=== PATIENT | male | born 1960 | race Caucasian/White ===

== ENCOUNTER 2017-02-06 11:07 | Observation (INO) | payer BC, OTHER ==
[~2017-02-06] VITALS: Ht 190.5 cm; Wt 89.6 kg
--- NOTE | ~2017-02-06 | ECHO ---
Transthoracic Echocardiography Report (TTE) Demographics Patient Name ENZO MARKS Date of Study 02/07/2017 D Patient Number [id number] Visit Number [id number] Date of 1960 Room Number G6312 Gender Male Number Age 56 year(s) Referring Lissett Avendano Vending Machine Coin Collector Faby Morgan [facility] Physician Physician Interpreting Lelia Jasso Hematology Nurse Educator Physician MD Supervising Ordering MD/MLP Physician Nurse Stress Instrument Setter Conclusions Contractility Score Summary Normal Left Ventricular contractility was noted. Summary Normal LV/RV size and systolic function .The estimated left ventricular ejection fraction is 55-60%. Diastolic assessment reveals normal relaxation. Mild concentric left ventricular hypertrophy. Mild tricuspid regurgitation by color Doppler. Procedure Type of Study TTE procedure:2D Echocardiogram. Procedure Date Date: 02/07/2017 Start: 09:30 AM Study Location: Inpatient Portable Technical Quality: Adequate visualization Indications:Syncope. Appropriate Use Criteria: 9 Patient Status: Routine HR: 53 bpm BP: 111/56 mmHg M-Mode/2D Measurements LV Diastolic Dimension: 5.14 cm LV Systolic Dimension: 3.57 cm LV Septum Diastolic: 1.24 cm LV PW Diastolic: 1.13 cm AO Root Dimension: 2.7 cm Cardiac Output: 3.6 l/min AV Cusp Separation: 2.3 cm RV Diastolic Dimension: 3.06 cm EF Estimated: 55 % LVOT: 2.1 cm LVOT VTI: 19.6 cm RV Base: 4.05 cm LV Stroke volume: 67.85 ml RV Length: 8.31 cm TAPSE: 3.02 cm TDI-S': 12.8 cm/s Doppler Measurements AV Peak Velocity: 1.16 m/s MV Peak E-Wave: 0.8 m/s AV Peak Gradient: 5.38 mmHg MV Peak A-Wave: 0.5 m/s AV Mean Gradient: 3 mmHg MV E/A Ratio: 1.58 LVOT Peak Velocity: 1.02 m/s MV P1/2t: 64 msec TR Gradient:10.11 mmHg PV Peak Velocity: 0.71 m/s Estimated RAP:10 mmHg PV Peak Gradient: 2 mmHg Estimated RVSP: 20 mmHg Estimated PASP: 20.11 mmHg E' Septal Velocity: 0.1 m/s A' Septal Velocity: 0.06 m/s E' Lateral Velocity: 0.12 m/s A' Lateral Velocity: 0.17 m/s Findings Left Ventricle Diastolic assessment reveals normal relaxation. Mild concentric left ventricular hypertrophy. Right Ventricle Normal right ventricle structure and function. Left Atrium Normal left atrial size. Right Atrium Normal right atrial size. IVC measures 1.74 cm with inspiratory collapse. Mitral Valve Normal mitral valve structure and function. Aortic Valve Mild AV sclerosis. Tricuspid Valve Mild tricuspid regurgitation by color Doppler. Pulmonic Valve PV is not well visualized. Pericardial Effusion No evidence of pericardial effusion. Pleural Effusion No evidence of pleural effusion. Contractility Score LV regional wall motion:(0-Non visualized 1-Normal 2-Hypokinesis 3-Akinesis 4-Dyskinesis 5-Aneurysm) Signature dtt: MARIA VICTORIA RIBEIRO dtd: 02/07/17 0930 Physician Self Edit
--- NOTE | ~2017-02-06 | ER ---
PATIENT'S NAME: ENZO MARKS [facility] AGE: 56 Y [address] ROOM: [place] [address] LOCATION: GPCU ADMIT DATE: 02/06/2017 ER/Outpatient Report DISCHARGE DATE: FAMILY PHYSICIAN: PHYSICIAN, NO ATTENDING PHYSICIAN: Romana MITCHELL Time of Patient's Arrival: 1107 hours. Time of Patient's Evaluation: 1115 hours. CHIEF COMPLAINT: Syncopal episode. HISTORY OF PRESENT ILLNESS: This is a 56-year-old male who presents to the ER, who states he had 4 syncopal episodes this morning. The patient states that he has been dealing with abdominal pain and this is a chronic thing for him. He states it comes and goes, but it has started back up again and it has been bothering him the last few days and he states it is located in his right lower quadrant. The patient states he has had a colonoscopy 2 years ago with no acute findings and he has not followed up with anybody since then. The patient denies any fever or chills. Denies any recent upper respiratory infections. He states he was taking a shower this morning when he started feeling lightheaded and dizzy. He sat down on the side of the tub and ultimately states that he passed out. He states he was on the floor. He states every time he would try to get up he would pass out again. He states this occurred 4 times this morning. He then was able to feel good enough to get up and get bagels to eat and then decided to come in to get evaluated. The patient states he did not hit his head. He denies any chest pain. No heart palpitations. He denies any other problems at this time. ALLERGIES: SULFA. MEDICATIONS: 1. Probiotic. 2. Nasal spray. 3. Some Benadryl. 4. Vitamins. PAST MEDICAL HISTORY: Off and on again abdominal pain. PAST SURGICAL HISTORY: He has had a hernia repair and surgery to his leg and right hand. PATIENT'S NAME: ENZO MARKS [facility] AGE: 56 Y [address] ROOM: [place] [address] LOCATION: GPCU ADMIT DATE: 02/06/2017 ER/Outpatient Report DISCHARGE DATE: FAMILY PHYSICIAN: PHYSICIAN, NO ATTENDING PHYSICIAN: Romana MITCHELL SOCIAL HISTORY: He drinks once every couple of weeks. Denies smoking use. REVIEW OF SYSTEMS: All systems reviewed and were negative with the exception of those discussed in the HPI. PHYSICAL EXAMINATION: VITAL SIGNS: Height 6 feet 3 inches stated, weight 90.9 kg taken, blood pressure is 125/63, pulse 74, respirations 18, temperature 97.1 degrees tympanically, and saturations 96% on room air. Yaz Coma Score is 15. GENERAL: Alert, calm, well-developed male, in no obvious distress. HEENT: Head: Normocephalic. He does display moist mucous membranes. Eyes: Pupils are equal and reactive to light. NECK: Supple. No lymphadenopathy. LUNGS: Clear to auscultation bilaterally. HEART: Regular rate and rhythm. ABDOMEN: Soft. He does have some tenderness in his right lower quadrant with palpation. He does slightly guard. He has no rebound tenderness. Good bowel sounds throughout. EXTREMITIES: No clubbing or cyanosis. He has full range of motion of all limbs. SKIN: Warm, dry, and intact. NEURO: Cranial nerves 2 through 12 grossly intact. Gait was not observed. LABORATORY DATA: CBC: White count 11.3, hemoglobin 14.2, platelets 184, and ANC is 10.6. CMS: Glucose is 116, otherwise unremarkable. Magnesium is 2.1. CPK is 115, CK-MB is 0.7, and troponin I is less than 0.040. Chest x-ray was negative for any infiltrate. EKG shows sinus rhythm. CT of the head was negative and reported by Radiology. CT scan of the abdomen and pelvis with contrast shows splenomegaly. He also has perigastric varices and prominence of the portal venous system. These findings are suggestive of portal hypertension. No particular evidence for a hepatic abnormality. ASSESSMENT AND PLAN: 1. Syncopal episodes. 2. Splenomegaly. 3. Perigastric varices and prominence of the portal venous system. ASSESSMENT AND PLAN: The patient did rest comfortably here the entire stay. He did not have any further episodes while he was here. The patient states he does not have a primary care physician; therefore, I called the Hospitalist Service, and they will be coming to evaluate and admit the patient for further observation. The PAT[facility] AGE: 56 Y [address] ROOM: [address] [place], [place] [address] LOCATION: [facility] ADMIT DATE: 02/06/2017 ER/Outpatient Report DISCHARGE DATE: FAMILY PHYSICIAN: PHYSICIAN, NO ATTENDING PHYSICIAN: Romana MITCHELL patient understands and agree with care. GERMAINE ONEILL PA-C FOR MD SEAN BAH/david /[id number] d: t: 02/10/17 1600, OUTPATIENT REPORT
--- NOTE | ~2017-02-06 | DS ---
PATIENT'S NAME: ENZO MARKS [facility] AGE: 56 Y [address] ROOM: [address] [place], [place] [address] LOCATION: GPCU ADMIT DATE: 02/06/2017 Discharge Summary DISCHARGE DATE: 02/07/2017 FAMILY PHYSICIAN: PHYSICIAN, NO ATTENDING PHYSICIAN: Lissett Avendano PRINCIPAL DIAGNOSES: 1. Presyncope. 2. Portal hypertension. 3. Hyperbilirubinemia. HOSPITAL COURSE: A 56-year-old very healthy gentleman with very active lifestyle was admitted to the hospital with presyncope which happened yesterday when he tried to get up from a sitting position. It happened multiple times. He also had vague abdominal pain, which was located in the hypogastrium. But he did have a lower body workout the same day. Initially, CAT scan was done of the head which did not reveal any acute intracranial abnormality. EKG was done, which did not show any acute ST-T wave changes or any rhythm abnormality. Echocardiography was done which was essentially unremarkable. CT scan of the abdomen was done to look for any cause for abdominal pain. It showed evidence for portal hypertension including splenomegaly of 15 cm as well as perigastric varices. Ultrasonography was done to look for any portal venous thrombosis, which was ruled out by radiologist. I did speak to Dr. Mike, radiologist, in person. All the lab work during the course of the hospitalization was pretty much unremarkable, except bilirubin was elevated at 2.0 and on the next day was 1.8. No stigmata of cirrhosis were found. Essentially radiologically, the liver looked fine on the CAT scan as well as ultrasonography. We susanne blood for the viral hepatitis panel which is pending at this point. I did explain all these findings to the patient and recommended that he should follow up with the horticultural nursery assistant in 4-5 days for further workup and management of this portal hypertension. On the day of discharge, the patient did not have any more dizziness, lightheadedness, chest pain, shortness of breath, or palpitations. PHYSICAL EXAMINATION: VITAL SIGNS: 116/65, 20, 57, 98.3. GENERAL: No acute distress. Alert and oriented x3. HEENT: Head: Atraumatic, normocephalic. Eyes: Nonicteric. No pallor. Oropharynx: Moist mucous membranes. CARDIOVASCULAR: S1, S2. No murmurs, gallops, or rubs. LUNGS: Clear to auscultation bilaterally. ABDOMEN: Soft, nontender, and nondistended. Bowel sounds present. EXTREMITIES: No clubbing, cyanosis, or edema. PATIENT'S NAME: ENZO MARKS [facility] AGE: 56 Y [address] ROOM: [place] [address] LOCATION: GPCU ADMIT DATE: 02/06/2017 Discharge Summary DISCHARGE DATE: 02/07/2017 FAMILY PHYSICIAN: PHYSICIAN, NO ATTENDING PHYSICIAN: Lissett Avendano LABORATORY DATA: Lab work as previously described was essentially unremarkable, except the bilirubin of 2 and then on the subsequent day 1.8. CAT scan and the ultrasonography as well as echocardiography findings are described above. DIET: Regular diet. ACTIVITY: As tolerated. FOLLOW UP: With Gastroenterology in 4 days. We will send all the records to Dr. Lopez's office. I spent 45 minutes in discharge planning of this patient including talking to the radiologist as well as explaining ultrasonography as well as lab findings of this patient and coordinating care. MD CARLO LAU/david /[id number] d: 02/08/17 0228 t: 02/13/17 1323, DISCHARGE SUMMARY
--- NOTE | ~2017-02-06 | HP ---
PATIENT'S NAME: ENZO DISLA [facility] AGE: 56 Y [address] ROOM: [place] [address] LOCATION: GPCU ADMIT DATE: 02/06/2017 History & Physical DISCHARGE DATE: FAMILY PHYSICIAN: PHYSICIAN, JESUS ATTENDING PHYSICIAN: Romana MITCHELL DATE OF SERVICE: CHIEF COMPLAINT: Presyncope. HISTORY OF PRESENT ILLNESS: The patient is a 56-year-old gentleman with no significant past medical history, who presents here with multiple episodes of presyncope. The patient reports that he woke up this morning and had work out of lower body for 1 hour and had a shower. Soon after he finished the shower, while he was drying himself, he felt lightheaded and sat down. The patient tried to stand up, however, felt dizzy and slid down and fell. He denies any loss of consciousness or head trauma. He reports that he tried to stand up 3 times with worsening of dizziness and was not able to stand up. However, finally, he was able to stand up and came to our emergency department driving a car and walked through the emergency department. He reports that he was also having some lower abdominal pain which he describes as aching. He is not quite sure whether this is secondary to his lower body workout that he did today. He denies fever, chills, nausea, vomiting, diarrhea, abdominal distention, loss of consciousness, or seizure-like activity. No uterine or bladder incontinence or change in vision. The patient also reports that he has chronic back pain. PAST MEDICAL HISTORY: No significant history except for chronic back pain. PAST SURGICAL HISTORY: 1. Hernia. 2. Thyroidectomy. 3. Right foot surgery. FAMILY HISTORY: Mother had colon cancer, and father has Gaucher disease. SOCIAL HISTORY: He sells furnaces and air conditioner. He denies smoking. Reports that he has a distant history of alcohol abuse in his 20s, however, he states he probably drinks 1 or 2 beers in a month. PATIENT'S NAME: ENZO MARKS [facility] AGE: 56 Y [address] ROOM: [place] [address] LOCATION: GPCU ADMIT DATE: 02/06/2017 History & Physical DISCHARGE DATE: FAMILY PHYSICIAN: PHYSICIAN, NO ATTENDING PHYSICIAN: Romana MITCHELL MEDICATIONS: Currently been reconciled. REVIEW OF SYSTEMS: All systems have been reviewed and are negative except for what I mentioned in the HPI. PHYSICAL EXAMINATION: VITAL SIGN: Blood pressure 125/63, heart rate of 69, temperature of 97.0, respiratory rate of 18, and 98% on room air. GENERAL APPEARANCE: The patient is alert and awake, in no acute distress. HEENT: Head; normocephalic and atraumatic. Nose; no nasal discharge. Mouth; moist oral mucosa. Ears; no discharge. CHEST: Clear to auscultation bilaterally. HEART: Regular rate and rhythm. No murmurs, rubs, or gallops. ABDOMEN: Soft, nontender, and nondistended. Bowel sounds present. GENITOURINARY: No signs of hernia. SKIN: Warm to touch. CITY MAIL CARRIER: Alert and oriented x3. MUSCULOSKELETAL: Range of motion intact. No obvious effusion. The patient is also negative orthostatic currently. LABORATORY DATA: Troponin 0.04. Sodium 141, potassium 4.1, blood glucose 116, creatinine 1.2, and CO2 of 25. White blood cell count of 11.3, hemoglobin 14.2, and platelets of 184,000. Bilirubin 2, alkaline phosphatase of 40, ALT of 21, AST is 21, and INR of 1. EKG shows normal sinus rhythm. Normal axis with heart rate at 77 beats per minute. AZ of 194, and QTc of 405. CT done in the ED shows CT brain, normal CT scan of the head. CT abdomen with contrast shows abnormal liver, biliary tree and nondilated, gallbladder normal. The spleen was enlarged to 15 cm. In addition, there was evidence of perigastric varices and dilation of splenic vein and portal venous confluences suggesting for portal hypertension. ASSESSMENT AND PLAN: 1. Presyncope. Etiology most likely orthostatic due to dehydration. The patient reports that he was working out today for 1 hour. The patient here orthostatic has been stable. The patient appears stable. The patient actually drove from home and actually walked to our emergency department. Vital signs stable. Hemoglobin of 14.2. EKG; normal sinus rhythm. The patient reports that he is feeling better now. As further workup, we will acquire echocardiogram. We will have the patient on subscription clerk and also acquire orthostatic q. shift. 2. Possible portal hypertension. The patient has a history of significant PATIENT'S NAME: ENZO MARKS [facility] AGE: 56 Y [address] ROOM: [address] [place], [place] [address] LOCATION: [facility] ADMIT DATE: 02/06/2017 History & Physical DISCHARGE DATE: FAMILY PHYSICIAN: PHYSICIAN, NO ATTENDING PHYSICIAN: Romana MITCHELL alcohol use in his 20s, however, for the past 20 years or so has been only drinking 1 or 2 mm in a month. INR is normal. Platelets are 184,000. AST and ALT are within normal limits. Bilirubin is mildly elevated to 2. CT shows possible portal hypertension. We will acquire viral hepatitis panel and portal vein Doppler to further investigate the portal hypertension. Hemoglobin is normal. We will follow the patient clinically. Greater than 50 minutes were spent on patient's care. We will admit the patient for observation for presyncope. Discussed the case with the patient to admit for observation to have further workup on presyncope and possible portal hypertension. Code status on admission, full code. MD JOSIE HAN/david /[id number] D: [id number] T: [id number] HISTORY & PHYSICAL
[2017-02-06 11:58] LABS: HEMATOCRIT 41.5 % (37.0-53.0); HEMOGLOBIN 14.2 g/dL (12.0-17.0); MCH 29.8 pg (27.0-34.0); MCHC 34.2 gm/dL (32.0-36.5); MCV 87.2 fl (83.0-98.0); MPV 9.3 fl (9.4-12.4); PLATELET COUNT 184 K/uL (150-450); RBC 4.76 M/uL (4.00-6.00); RDW-CV 12.6 % (11.9-14.6); WBC 11.3 K/uL (4.0-11.0)
[2017-02-06 12:06] LABS: INR - (THERAPEUTIC) 1.02 (0.92-1.07); PROTIME 10.7 SECONDS (9.8-11.4); PTT 25 SECONDS (25-32)
[2017-02-06 12:17] LABS: ALBUMIN 3.6 gm/dL (3.5-5.0); ALK PHOS 40 IU/L (33-138); ALT 21 IU/L (12-78); ANION GAP 12.1 (10.0-19.0); AST 21 IU/L (10-40); BLOOD UREA NITROGEN 24 mg/dL (6-24); CALCIUM 8.5 mg/dL (8.5-10.5); CHLORIDE 108 mMol/L (96-110); CO2 25 mMol/L (22-32); CPK 115 IU/L (35-332); CREATININE 1.2 mg/dL (0.6-1.3); ESTIMATED GFR (MDRD EQUATION) > 60; MAGNESIUM 2.1 mg/dL (1.8-2.6); POTASSIUM 4.1 mMol/L (3.7-5.1); SODIUM 141 mMol/L (135-145); TOTAL PROTEIN 7.4 g/dL (6.0-8.4)
[2017-02-06 12:21] LABS: ABSOLUTE NEUTROPHIL CT (ANC) 10.6 K/uL (1.4-9.0); BANDED NEUTROPHIL # 1.2 K/uL (0.0-0.1); BANDED NEUTROPHILS % 11 %; LYMPHOCYTE # 0.3 K/uL (0.8-4.0); LYMPHOCYTE % 3 %; MONOCYTE # 0.3 K/uL (0.0-1.0); SEGMENTED NEUTROPHIL # 9.4 K/uL (1.4-9.0); SEGMENTED NEUTROPHIL % 83 %
[2017-02-06] MEDS ORDERED: ALIGN4 MG PO (17:27)
[2017-02-06] MEDS ORDERED: ONE DAILY FOR1 EACH PO (17:27)
[2017-02-06] MEDS ORDERED: ZYRTEC10 MG PO (17:28)
[2017-02-06] MEDS ORDERED: FLONASE 50 MCG/16 GM NOSE (17:29)
--- NOTE | 2017-02-06 19:14 | NUR ---
Admission Note: Patient states that this morning after he got out of the shower he blacked out and awoke to find himself on the ground. He attempted to get back into his bedroom where he passed out an additional three times. Patient later drove himself to the ED. CT of head negative. CT of abdomen/pelvis showed splenomegaly and perigastric varices, prominence of portal venous system, and prostate enlargement. Patient admitted to PCU at 1650. Vital signs stable: HR 62, RR 18, BP 123/70, O2 saturation 96% on room air, temperature 97.9F, and reports a headache /. Denies shortnes of breath or dizziness, but states that he has been dizzy the last 2 weeks and felt weak today. Lung sounds clear. No problems voiding or with BM's. Last one this morning. Assessment otherwise negative. Patient states that this has never happened before. No heart history. States he had a colonoscopy 2 years ago that showed colitis. Plan to have acute viral hepatitis lab work up and doppler ultrasound of portal venous system in A.M. Will continue as per plan of care. Tomasz YORK 02/06/17
[2017-02-07 04:04] LABS: BASOPHIL % 0.7 %; EOSINOPHIL # 0.2 K/uL (0.0-0.5); EOSINOPHIL % 3.1 %; HEMATOCRIT 40.4 % (37.0-53.0); HEMOGLOBIN 13.5 g/dL (12.0-17.0); IMMATURE GRANULOCYTE % 0.3 %; LYMPHOCYTE # 1.2 K/uL (0.8-4.0); MCH 29.6 pg (27.0-34.0); MCHC 33.4 gm/dL (32.0-36.5); MCV 88.6 fl (83.0-98.0); MONOCYTE # 0.7 K/uL (0.0-1.0); MONOCYTE % 11.6 %; MPV 9.5 fl (9.4-12.4); NEUTROPHIL % 65.3 %; NRBC % 0 /100WBC (0-0.00); PLATELET COUNT 184 K/uL (150-450); RBC 4.56 M/uL (4.00-6.00); RDW-CV 12.8 % (11.9-14.6); WBC 6.1 K/uL (4.0-11.0)
--- NOTE | 2017-02-07 04:14 | NUR ---
Patient A/Ox3. VSS on RA. Bradycardia while sleeping. Up stand by assist. No complaints. Lungs clear. Bowel sounds present. IV saline locked. Npo for abdominal US this am. Echo this am. Orthostatic BP (-).
[2017-02-07 04:22] LABS: ALBUMIN 3.3 gm/dL (3.5-5.0); ALK PHOS 34 IU/L (33-138); ALT 20 IU/L (12-78); ANION GAP 9.9 (10.0-19.0); AST 20 IU/L (10-40); BLOOD UREA NITROGEN 20 mg/dL (6-24); CALCIUM 8.6 mg/dL (8.5-10.5); CHLORIDE 109 mMol/L (96-110); CO2 28 mMol/L (22-32); CREATININE 1.1 mg/dL (0.6-1.3); ESTIMATED GFR (MDRD EQUATION) > 60; POTASSIUM 3.9 mMol/L (3.7-5.1); SODIUM 143 mMol/L (135-145); TOTAL BILIRUBIN 1.8 mg/dL (0.0-1.5); TOTAL PROTEIN 6.8 g/dL (6.0-8.4)
--- NOTE | 2017-02-07 13:07 | NUR ---
Introduced self and role of care management to patient and his family. He lives in [place] with his . He states that he is able to do all his own ADL's. He states that his is available to assist as needed. He plans on returning home on discharge. He denies any needs at this time. Will continue to follow.
--- NOTE | 2017-02-07 15:42 | NUR ---
Discharge Summary: Patient A/O x 3 and up independently in the room and hallways. Denies dizziness or lightheadedness as well as pain. Vital signs stable: HR 70, BP 133/71, RR 16, temperature 98.6F, and O2 saturation 99% on RA. Discharge instructions included following up with Dr. Lopez on 02/11 and sign/symptoms to be alert for. No medication changes. Patient verbalized understanding of all instructions and denies any further questions. Patient [facility]U at [facility] and then home to self care with family. Tomasz YORK 02/07/17
== END 2017-02-07 15:25 | disposition disaster alternative care site (69) ==
LOC: GMED 11:07 → GPCU 14:56
PROVIDERS: Physician Assistant Medical; ADMIT Internal Medicine
DX: R55 Syncope and collapse (principal); K76.6 Portal hypertension; E80.6 Other disorders of bilirubin metabolism; Z98.890 Other specified postprocedural states; Z88.2 Allergy status to sulfonamides; Z79.899 Other long term (current) drug therapy
CPT/HCPCS: G0378; J7120; Q9967

== ENCOUNTER → 2017-02-18 | Day surgery (SDC) | payer BC, OTHER ==
[~2017-02-18] VITALS: Ht 190.5 cm; Wt 87.7 kg
[~2017-02-18] MED LIST: ALIGN4 MG PO; FLONASE 50 MCG/16 GM NOSE; ONE DAILY FOR1 EACH PO; ZYRTEC10 MG PO
== END | disposition disaster alternative care site (69) ==
LOC: GPOC 02-16 10:00 → GEND 08:11
PROC: 0DJ08ZZ Inspection of Upper Intestinal Tract, Via Natural or Artificial Opening Endoscopic (ICD-10-PCS; principal; 2017-02-18)
DX: K76.6 Portal hypertension (principal); G47.30 Sleep apnea, unspecified; Z88.2 Allergy status to sulfonamides; Z98.890 Other specified postprocedural states
CPT/HCPCS: J2001; J7030